=== PATIENT | female | born 1970 | race Native Hawaiian/Other Pacific Islander ===

== ENCOUNTER 2016-04-02 18:25 | Emergency (ER) | payer OTHER ==
[~2016-04-02] VITALS: Ht 167.6 cm; Wt 139.7 kg
[~2016-04-02 18:25] MED LIST: ALBU90AE13 INH; ALPR0.5T24 PO; AMOX500T5 PO; APAP PO; ASPIR-8181 MG PO; CETIRIZINE10 MG PO; CODEINE PO; HYDR10TA47 PO; HYDR10TA51 PO; HYDR25TA60 PO; METO50TA27 PO; METRONIDAZOL500 MG PO; NEURONTIN 100M100 MG OR; NEURONTIN 100M100 MG PO; NEXIUM40 M1 PO; OXYC5TAB53 PO; PANT40TA PO; SINGULAIR10 MG PO; XARELTO20 MG OR; ZANTAC300 MG PO
[2016-04-02 20:08] VITALS: BP 145/89; TEMP 98.3
== END 2016-04-02 20:08 | disposition home or self-care (01) ==
LOC: ED 18:25
DX: L29.8 Other pruritus (principal); T50.995A Adverse effect of other drugs, medicaments and biological substances, initial encounter; Y92.89 Other specified places as the place of occurrence of the external cause
CPT/HCPCS: 99282

== ENCOUNTER 2016-04-11 18:42 | Outpatient (CLI) | payer OTHER | END 2016-04-11 19:23 | disposition home or self-care (01) | LOC: US 18:42 | DX: M79.605 Pain in left leg (principal) ==

== ENCOUNTER 2016-04-25 10:47 | Outpatient (CLI) | payer OTHER | END 2016-04-25 22:05 | disposition home or self-care (01) | LOC: CT 10:47 | DX: K55.1 Chronic vascular disorders of intestine (principal) | CPT/HCPCS: 36415; 82565; 84520 ==

== ENCOUNTER 2016-05-01 18:52 | Observation (INO) | payer OTHER ==
[~2016-05-01] VITALS: Ht 167.6 cm; Wt 144.9 kg
[2016-05-01 20:33] LABS: PLATELET COUNT 405 K/uL (152-353)
[2016-05-01 20:43] LABS: POTASSIUM 5.5 mmol/L (3.6-5.2); SODIUM 132 mmol/L (136-145)
[2016-05-01 21:07] VITALS: BP 147/91; TEMP 98.2; Ht 167.6 cm; Wt 144.9 kg
[2016-05-02 00:02] VITALS: BP 113/47; TEMP 98.5
[2016-05-02 00:06] LABS: PARTIAL THROMBOPLASTIN TIME 24.2 SECONDS (24.5-33.6)
[2016-05-02 04:00] VITALS: BP 98/45; TEMP 98.6
[2016-05-02 08:11] VITALS: BP 117/53; TEMP 98.3
[2016-05-02 12:00] VITALS: BP 147/81; TEMP 98.3
[2016-05-02 16:00] VITALS: BP 122/67; TEMP 98
[2016-05-02 20:00] VITALS: BP 108/82; TEMP 97.8
[2016-05-03 00:15] VITALS: BP 150/72; TEMP 97.8
[2016-05-03 04:00] VITALS: BP 142/63; TEMP 97.8
[2016-05-03 05:18] LABS: PLATELET COUNT 398 K/uL (152-353)
[2016-05-03 05:39] LABS: POTASSIUM 3.9 mmol/L (3.6-5.2); SODIUM 137 mmol/L (136-145)
[2016-05-03 08:00] VITALS: BP 108/54; TEMP 97.8
[2016-05-03 12:00] VITALS: BP 124/63; TEMP 97.7
--- NOTE | 2016-05-03 18:10 | NUR ---
IV D/C'd. DISCHARGE INSTRUCTIONS SIGNED AND GIVEN. Pt. EXIT OUT OF FRONT ENTRANCE AMBULATING. NO DISTRESS OBSERVED.
== END 2016-05-03 10:05 | disposition home or self-care (01) ==
LOC: MED/SURG 18:52
PROVIDERS: ADMIT Family Medicine
DX: I50.21 Acute systolic (congestive) heart failure (principal); I48.0 Paroxysmal atrial fibrillation; I73.9 Peripheral vascular disease, unspecified; E13.65 Other specified diabetes mellitus with hyperglycemia; J44.9 Chronic obstructive pulmonary disease, unspecified; M06.832 Other specified rheumatoid arthritis, left wrist; E66.09 Other obesity due to excess calories; R60.0 Localized edema; R06.02 Shortness of breath; I74.5 Embolism and thrombosis of iliac artery; R07.89 Other chest pain
CPT/HCPCS: 36415; 36591; 80053; 82550; 82948; 83880; 84484; 85027; 85610; 85730; 93005; 94640; 94664; 94760; 96365; 96366; 96367; 96372; 99220; G0378; G0379; J0456; J1650

== ENCOUNTER 2016-09-08 23:16 | Emergency (ER) | payer OTHER ==
[~2016-09-08] VITALS: Ht 167.6 cm; Wt 145.2 kg
[2016-09-09 01:42] LABS: PLATELET COUNT 422 K/uL (152-353)
[2016-09-09 01:50] LABS: POTASSIUM 3.7 mmol/L (3.6-5.2); SODIUM 136 mmol/L (136-145)
[2016-09-09 02:34] VITALS: BP 118/67; TEMP 98.4
== END 2016-09-09 02:30 | disposition home or self-care (01) ==
LOC: ED 23:16
DX: L02.211 Cutaneous abscess of abdominal wall (principal); E11.9 Type 2 diabetes mellitus without complications
CPT/HCPCS: 36415; 80053; 83036; 85027; 96372; 99283; J0696

== ENCOUNTER 2016-11-19 17:35 | Inpatient (IN) | payer OTHER ==
[~2016-11-19] VITALS: Ht 167.6 cm; Wt 148.0 kg
[2016-11-19 19:05] LABS: PLATELET COUNT 451 K/uL (152-353)
[2016-11-19 19:14] VITALS: BP 120/62; TEMP 98.8; Ht 167.6 cm; Wt 148.0 kg
[2016-11-19 19:15] LABS: POTASSIUM 3.8 mmol/L (3.6-5.2); SODIUM 135 mmol/L (136-145)
[2016-11-19 20:09] VITALS: BP 107/53; TEMP 97.5
[2016-11-20] VITALS: BP 143/71; TEMP 98.3
[2016-11-20 04:00] VITALS: BP 115/64; TEMP 98
[2016-11-20 05:36] LABS: PLATELET COUNT 433 K/uL (152-353)
[2016-11-20 05:53] LABS: POTASSIUM 4.2 mmol/L (3.6-5.2); SODIUM 134 mmol/L (136-145)
[2016-11-20 08:00] VITALS: BP 150/65; TEMP 97.4
[2016-11-20 12:00] VITALS: BP 150/65; TEMP 97.6
[2016-11-20 16:00] VITALS: BP 113/66; TEMP 98
[2016-11-20 20:00] VITALS: BP 122/68; TEMP 97.9
[2016-11-21] VITALS: BP 107/61; TEMP 97.7
[2016-11-21 04:00] VITALS: BP 130/50; TEMP 97.8
[2016-11-21 05:21] LABS: PLATELET COUNT 366 K/uL (152-353)
[2016-11-21 05:48] LABS: POTASSIUM 4.4 mmol/L (3.6-5.2); SODIUM 134 mmol/L (136-145)
[2016-11-21 08:00] VITALS: BP 108/63; TEMP 97.7
[2016-11-21 12:00] VITALS: BP 108/62; TEMP 98.2
[2016-11-21 15:48] VITALS: BP 139/75; TEMP 97.9
[2016-11-21 20:00] VITALS: BP 147/77; TEMP 97.5
[2016-11-22] VITALS: BP 112/49; TEMP 97.7
[2016-11-22 04:00] VITALS: BP 129/70; TEMP 98
[2016-11-22 05:43] LABS: PLATELET COUNT 393 K/uL (152-353)
[2016-11-22 06:01] LABS: POTASSIUM 3.8 mmol/L (3.6-5.2); SODIUM 141 mmol/L (136-145)
[2016-11-22 08:00] VITALS: BP 129/71; TEMP 98.2
--- NOTE | 2016-11-22 11:41 | NUR ---
D/C ORDERS RECIEVED. IV D/C'D. D/C INSTURCTIONS GIVEN TO PT. PT HAS NO QUESTIONS. NAD NOTED. PT WALKED OUT TO CAR WITH PCT.
[2016-12-14] MEDS ORDERED: GLIP10TA55 PO (03:07)
== END 2016-11-22 11:48 | disposition home or self-care (01) | DRG 190 ==
LOC: MED/SURG 17:35
PROVIDERS: ADMIT Family Medicine
DX: J44.0 Chronic obstructive pulmonary disease with (acute) lower respiratory infection (principal); J18.8 Other pneumonia, unspecified organism; D72.828 Other elevated white blood cell count; E66.01 Morbid (severe) obesity due to excess calories; I10 Essential (primary) hypertension; E86.0 Dehydration; Z79.01 Long term (current) use of anticoagulants; Z72.0 Tobacco use; R74.8 Abnormal levels of other serum enzymes; E11.9 Type 2 diabetes mellitus without complications
CPT/HCPCS: 36415; 80053; 82948; 83735; 83880; 85027; 87040; 93005; 94640; 94664; 94760; 96365; 96366; 96367; 96372; 96374; 96375; J1200; J2920; J2930

== ENCOUNTER 2016-12-13 22:01 | Outpatient (CLI) | payer OTHER ==
[2016-12-14] MEDS ORDERED: GLIP10TA55 PO (03:07)
== END 2016-12-13 22:03 | disposition short-term general hospital (02) ==
LOC: AMB 22:01
DX: R07.89 Other chest pain (principal); R00.2 Palpitations
CPT/HCPCS: A0425; A0429

== ENCOUNTER 2016-12-31 13:43 | Outpatient (CLI) | payer OTHER ==
[~2016-12-31 13:43] MED LIST changes: +GLIP10TA55 PO
== END 2016-12-31 19:04 | disposition home or self-care (01) ==
LOC: MAMMO 13:43
DX: N61.0 Mastitis without abscess (principal)

== ENCOUNTER 2017-02-10 17:15 | Observation (INO) | payer OTHER ==
[~2017-02-10] VITALS: Ht 170.2 cm; Wt 138.8 kg
[2017-02-10 19:11] VITALS: BP 125/66; TEMP 98.8; Ht 170.2 cm; Wt 138.8 kg
[2017-02-10 20:00] VITALS: BP 114/60; TEMP 99
[2017-02-10 20:18] LABS: PLATELET COUNT 419 K/uL (152-353)
[2017-02-10 20:36] LABS: PARTIAL THROMBOPLASTIN TIME 20.9 SECONDS (24.5-33.6)
[2017-02-10 20:37] LABS: POTASSIUM 4.3 mmol/L (3.6-5.2); SODIUM 135 mmol/L (136-145)
[2017-02-11 00:30] VITALS: BP 120/49; TEMP 98.8
[2017-02-11 03:52] VITALS: BP 149/78; TEMP 98.9
[2017-02-11 05:30] LABS: PLATELET COUNT 366 K/uL (152-353)
[2017-02-11 06:19] LABS: POTASSIUM 3.8 mmol/L (3.6-5.2); SODIUM 135 mmol/L (136-145)
[2017-02-11 08:00] VITALS: BP 144/78; TEMP 98.4
[2017-02-11 11:39] VITALS: BP 103/52; TEMP 98.8
[2017-02-11] MEDS ORDERED: LEVAQUIN500 MG PO (16:44)
[2017-02-11] MEDS ORDERED: NITR0.4S SL (16:44)
--- NOTE | 2017-02-11 17:06 | NUR ---
IV D/C'd. DISCHARGE INSTRUCTIONS SIGNED AND GIVEN. Pt. EXIT OUT OF FRONT ENTRANCE AMBULATING.
== END 2017-02-11 17:06 | disposition home or self-care (01) ==
LOC: MED/SURG 17:15
PROVIDERS: ADMIT Family Medicine
DX: R07.9 Chest pain, unspecified (principal); I82.402 Acute embolism and thrombosis of unspecified deep veins of left lower extremity; I74.9 Embolism and thrombosis of unspecified artery
CPT/HCPCS: 36415; 36591; 80053; 81000; 82550; 83735; 84484; 85027; 85610; 85651; 85730; 93005; 96367; 96372; 96374; 99220; G0378; G0379; J1650; J2270; J2543

== ENCOUNTER 2017-02-25 18:06 | Observation (INO) | payer OTHER ==
[~2017-02-25] VITALS: Ht 167.6 cm; Wt 139.3 kg
[~2017-02-25 18:06] MED LIST changes: +LEVAQUIN500 MG PO; +NITR0.4S SL
[2017-02-25 18:48] LABS: PLATELET COUNT 519 K/uL (152-353)
[2017-02-25 19:15] LABS: POTASSIUM 3.7 mmol/L (3.6-5.2); SODIUM 138 mmol/L (136-145)
[2017-02-25 23:20] VITALS: BP 149/96; TEMP 98.8; Ht 167.6 cm; Wt 139.3 kg
[2017-02-26] VITALS: BP 114/52; TEMP 98
[2017-02-26 04:00] VITALS: BP 116/55; TEMP 97.5
[2017-02-26 06:00] LABS: POTASSIUM 4.4 mmol/L (3.6-5.2); SODIUM 137 mmol/L (136-145)
[2017-02-26 06:10] LABS: PLATELET COUNT 452 K/uL (152-353)
[2017-02-26 08:00] VITALS: BP 117/65; TEMP 98.8
[2017-02-26 12:00] VITALS: BP 113/66; TEMP 98.6
[2017-02-26 16:00] VITALS: BP 114/69; TEMP 98.8
--- NOTE | 2017-02-26 21:11 | NUR ---
PT NOT IN ROOM TO GIVE 2000 OR 2100 MEDS. STATES THAT PT IS OUTSIDE SMOKING.
== END 2017-02-26 22:22 | disposition home or self-care (01) ==
LOC: MED/SURG 18:06
PROVIDERS: ADMIT Family Medicine
DX: J18.8 Other pneumonia, unspecified organism (principal); R05 Cough
CPT/HCPCS: 36415; 36591; 36600; 80053; 82805; 82948; 83735; 85027; 87040; 93005; 94640; 94664; 94760; 96365; 96366; 96367; 96374; 96375; 99220; G0378; G0379; J2930

== ENCOUNTER 2017-05-19 19:01 | Outpatient (CLI) | payer OTHER ==
[2017-05-19 19:35] LABS: PLATELET COUNT 407 K/uL (152-353)
== END 2017-05-19 20:13 | disposition home or self-care (01) ==
LOC: LAB 19:01
PROVIDERS: Surgery
DX: I74.5 Embolism and thrombosis of iliac artery (principal); Z01.812 Encounter for preprocedural laboratory examination
CPT/HCPCS: 36415; 80048; 85027

== ENCOUNTER 2017-06-14 17:38 | Emergency (ER) | payer OTHER ==
[~2017-06-14] VITALS: Ht 167.6 cm; Wt 122.5 kg
[2017-06-14] MEDS ORDERED: ASA LOW STR81 MG PO (18:12)
[2017-06-14] MEDS ORDERED: NEXIUM 24HR20 M1 PO (18:13)
[2017-06-14] MEDS ORDERED: HYDR5TAB9 PO (18:13)
[2017-06-14] MEDS ORDERED: CYCL10TA35 PO (18:14)
[2017-06-14] MEDS ORDERED: CLOP75TA2 PO (18:14)
[2017-06-14] MEDS ORDERED: METFORMIN HYDR500 MG PO (18:15)
[2017-06-14] MEDS ORDERED: ALBU90AE13 INH (18:16)
[2017-06-14 18:38] LABS: PLATELET COUNT 392 K/uL (152-353)
[2017-06-14 18:42] LABS: POTASSIUM 4.1 mmol/L (3.6-5.2)
[2017-06-14 18:53] LABS: PARTIAL THROMBOPLASTIN TIME 23.9 SECONDS (24.5-33.6)
[2017-06-14 20:49] VITALS: BP 138/72; TEMP 97.3
== END 2017-06-14 20:49 | disposition home or self-care (01) ==
LOC: ED 17:38
DX: I80.9 Phlebitis and thrombophlebitis of unspecified site (principal)
CPT/HCPCS: 36415; 80053; 85027; 85379; 85610; 85730; 96372; 99283; J1885

== ENCOUNTER 2017-09-23 16:00 | Outpatient (CLI) | payer OTHER ==
[~2017-09-23 16:00] MED LIST changes: +ASA LOW STR81 MG PO; +CLOP75TA2 PO; +CYCL10TA35 PO; +HYDR5TAB9 PO; +METFORMIN HYDR500 MG PO; +NEXIUM 24HR20 M1 PO
== END 2017-09-23 23:19 | disposition home or self-care (01) ==
LOC: US 16:00
DX: M79.605 Pain in left leg (principal)

== ENCOUNTER 2017-10-23 15:56 | Outpatient (CLI) | payer OTHER | END 2017-10-23 19:23 | disposition home or self-care (01) | LOC: RESP 15:56 | DX: G62.89 Other specified polyneuropathies (principal) | CPT/HCPCS: 95910 ==

== ENCOUNTER 2018-04-14 15:21 | Outpatient (CLI) | payer OTHER | END 2018-04-14 21:17 | disposition home or self-care (01) | LOC: US 15:21 | DX: N95.8 Other specified menopausal and perimenopausal disorders (principal) ==

== ENCOUNTER 2018-06-03 18:51 | Outpatient (CLI) | payer OTHER | END 2018-06-03 19:15 | disposition home or self-care (01) | LOC: LAB 18:51 | DX: R06.02 Shortness of breath (principal) | CPT/HCPCS: 83880 ==

== ENCOUNTER 2018-08-10 16:58 | Outpatient (CLI) | payer OTHER | END 2018-08-10 19:23 | disposition home or self-care (01) | LOC: RAD 16:58 | DX: S93.492A Sprain of other ligament of left ankle, initial encounter (principal) ==

== ENCOUNTER 2018-08-15 21:37 | Emergency (ER) | payer OTHER ==
[~2018-08-15] VITALS: Ht 33 cm; Wt 0.5 kg
[2018-08-15 22:08] LABS: PLATELET COUNT 614 K/uL (152-353)
[2018-08-15 22:20] LABS: SODIUM 137 mmol/L (136-145)
[2018-08-16 03:08] VITALS: BP 149/70; TEMP 97.5
== END 2018-08-16 03:08 | disposition short-term general hospital (02) ==
LOC: ED 21:37
PROVIDERS: Emergency Medicine
PROC: 0T9B70Z Drainage of Bladder with Drainage Device, Via Natural or Artificial Opening (ICD-10-PCS; principal; 2018-08-15)
PROC: 0D9670Z Drainage of Stomach with Drainage Device, Via Natural or Artificial Opening (ICD-10-PCS; 2018-08-15)
DX: R41.82 Altered mental status, unspecified (principal); R11.10 Vomiting, unspecified; R00.0 Tachycardia, unspecified
CPT/HCPCS: 36415; 36600; 43754; 51702; 80053; 80307; 82550; 82553; 82805; 83605; 84484; 85027; 85379; 87040; 93005; 96365; 96375; 99285; J0696; J2310; J2405; J2550; Q9963

== ENCOUNTER 2018-08-16 03:09 | Outpatient (CLI) | payer OTHER | END 2018-08-16 04:32 | disposition short-term general hospital (02) | LOC: AMB 03:09 | DX: R41.82 Altered mental status, unspecified (principal) | CPT/HCPCS: A0425; A0427 ==

== ENCOUNTER 2018-11-18 14:50 | Inpatient (IN) | payer OTHER ==
[~2018-11-18] VITALS: Ht 162.6 cm; Wt 122.0 kg
[2018-11-18 16:00] VITALS: BP 98/72; TEMP 98.1
[2018-11-18 17:08] VITALS: BP 98/72; TEMP 98.1; Ht 162.6 cm; Wt 122.0 kg
[2018-11-18] MEDS ORDERED: GABA400C2 PO (17:27)
[2018-11-18] MEDS ORDERED: METO-837 PO (17:29)
[2018-11-18] MEDS ORDERED: NUCYNTA ER100 MG PO (17:33)
[2018-11-18] MEDS ORDERED: TRAMADOL HYDROC50 MG PO (17:34)
[2018-11-18] MEDS ORDERED: VERA80TAB PO (17:35)
[2018-11-18] MEDS ORDERED: ALBUTEROL0.083 % INH (17:38)
[2018-11-18 20:00] VITALS: BP 110/83; TEMP 98.1
[2018-11-19] VITALS: BP 132/80; TEMP 98.6
[2018-11-19 04:00] VITALS: BP 122/82; TEMP 98
[2018-11-19 08:00] VITALS: BP 122/60; TEMP 97.8
[2018-11-19 12:00] VITALS: BP 142/82; TEMP 97.3
[2018-11-19 13:11] LABS: PLATELET COUNT 340 K/uL (152-353)
[2018-11-19 13:18] LABS: POTASSIUM 4.1 mmol/L (3.6-5.2)
[2018-11-19 13:19] LABS: POTASSIUM 3.5 mmol/L (3.6-5.2)
[2018-11-19 16:00] VITALS: BP 147/85; TEMP 98.2
[2018-11-19 20:00] VITALS: BP 123/69; TEMP 98.9
[2018-11-20] VITALS: BP 103/62; TEMP 99.2
[2018-11-20 04:00] VITALS: BP 101/76; TEMP 98.9
[2018-11-20 05:23] LABS: PLATELET COUNT 316 K/uL (152-353)
[2018-11-20 05:45] LABS: POTASSIUM 4.3 mmol/L (3.6-5.2)
[2018-11-20 08:00] VITALS: BP 144/66; TEMP 97.8
[2018-11-20 12:00] VITALS: BP 122/67; TEMP 97.5
[2018-11-20 16:00] VITALS: BP 115/65; TEMP 98
[2018-11-20 20:00] VITALS: BP 148/68; TEMP 98.4
[2018-11-21] VITALS: BP 144/74; TEMP 98.4
[2018-11-21] MEDS ORDERED: NUCYNTA100 MG PO (00:42)
[2018-11-21 04:00] VITALS: BP 107/68; TEMP 98.2
[2018-11-21 05:21] LABS: PLATELET COUNT 295 K/uL (152-353)
[2018-11-21 05:40] LABS: POTASSIUM 4.3 mmol/L (3.6-5.2)
[2018-11-21 08:00] VITALS: BP 110/67; TEMP 98.4
[2018-11-21 12:00] VITALS: BP 102/60; TEMP 97.9
[2018-11-21 16:00] VITALS: BP 103/63; TEMP 98.5
== END 2018-11-21 21:28 | disposition home or self-care (01) | DRG 194 ==
LOC: MED/SURG 14:50
PROVIDERS: ADMIT Family Medicine
DX: J18.8 Other pneumonia, unspecified organism (principal); J44.0 Chronic obstructive pulmonary disease with (acute) lower respiratory infection; M79.7 Fibromyalgia; I11.0 Hypertensive heart disease with heart failure; I50.9 Heart failure, unspecified; I48.91 Unspecified atrial fibrillation; I25.10 Atherosclerotic heart disease of native coronary artery without angina pectoris; E11.9 Type 2 diabetes mellitus without complications; Z86.711 Personal history of pulmonary embolism; E03.8 Other specified hypothyroidism
CPT/HCPCS: 36415; 80053; 82550; 83605; 83735; 83880; 84100; 84484; 85027; 87040; 87070; 87077; 87185; 87186; 87205; 93005; 94640; 94664; 94668; 94760; J0696

== ENCOUNTER 2018-11-18 15:13 | Outpatient (CLI) | payer OTHER ==
[2018-11-18] MEDS ORDERED: GABA400C2 PO (17:27)
[2018-11-18] MEDS ORDERED: METO-837 PO (17:29)
[2018-11-18] MEDS ORDERED: NUCYNTA ER100 MG PO (17:33)
[2018-11-18] MEDS ORDERED: TRAMADOL HYDROC50 MG PO (17:34)
[2018-11-18] MEDS ORDERED: VERA80TAB PO (17:35)
[2018-11-18] MEDS ORDERED: ALBUTEROL0.083 % INH (17:38)
== END 2018-11-18 15:16 | disposition short-term general hospital (02) ==
LOC: AMB 15:13
DX: I63.89 Other cerebral infarction (principal); J18.8 Other pneumonia, unspecified organism
CPT/HCPCS: A0425; A0429

== ENCOUNTER 2018-12-24 16:08 | Observation (INO) | payer OTHER ==
[~2018-12-24] VITALS: Ht 170.2 cm; Wt 116.6 kg
[~2018-12-24 16:08] MED LIST changes: +ALBUTEROL0.083 % INH; +GABA400C2 PO; +METO-837 PO; +NUCYNTA ER100 MG PO; +NUCYNTA100 MG PO; +TRAMADOL HYDROC50 MG PO; +VERA80TAB PO
[2018-12-24 18:05] VITALS: BP 134/73; TEMP 98; Ht 170.2 cm; Wt 116.6 kg
[2018-12-24] MEDS ORDERED: NUCYNTA ER100 MG PO (18:20)
[2018-12-24] MEDS ORDERED: METFORMIN HCL500 MG PO (18:22)
[2018-12-24] MEDS ORDERED: [UNRECOGNIZED DRUG - REMARK] PO (18:23)
[2018-12-24] MEDS ORDERED: RANI150T78 PO (18:26)
[2018-12-24] MEDS ORDERED: ESOMEPRAZOLE MA40 MG PO (18:27)
[2018-12-24] MEDS ORDERED: VERA80TAB PO (18:28)
[2018-12-24] MEDS ORDERED: CLOP75TA2 PO (18:30)
[2018-12-24] MEDS ORDERED: ONDANSETRON HYDR4 MG PO (18:32)
[2018-12-24 18:33] LABS: PLATELET COUNT 333 K/uL (152-353)
[2018-12-24] MEDS ORDERED: GLIP10TA55 PO (18:33)
[2018-12-24] MEDS ORDERED: CYCLOBENZAPRINE10 MG PO (18:34)
[2018-12-24] MEDS ORDERED: ASPIRIN 8181 MG PO (18:36)
[2018-12-24] MEDS ORDERED: METO-837 PO (18:38)
[2018-12-24 18:46] LABS: POTASSIUM 5.3 mmol/L (3.6-5.2); SODIUM 135 mmol/L (136-145)
[2018-12-24 20:00] VITALS: BP 168/94; TEMP 97.8
[2018-12-25 00:01] VITALS: BP 104/69; TEMP 98.2
[2018-12-25 04:01] VITALS: BP 110/63; TEMP 98
[2018-12-25 08:00] VITALS: BP 128/82; TEMP 98.4
[2018-12-25 12:00] VITALS: BP 125/79; TEMP 97.9
[2018-12-25 16:00] VITALS: BP 148/75; TEMP 97.6
[2018-12-25 20:00] VITALS: BP 126/79; TEMP 97.7
[2018-12-26] VITALS (7 sets, daily range): BP systolic 89–140; BP diastolic 50–89; TEMP 97.3–98.8
[2018-12-26 05:22] LABS: PLATELET COUNT 302 K/uL (152-353)
[2018-12-26 05:43] LABS: POTASSIUM 3.7 mmol/L (3.6-5.2)
[2018-12-27 03:56] VITALS: BP 101/55; TEMP 98.5
[2018-12-27 05:14] LABS: PLATELET COUNT 251 K/uL (152-353)
[2018-12-27 05:39] LABS: POTASSIUM 3.9 mmol/L (3.6-5.2)
[2018-12-27 08:00] VITALS: BP 94/54; TEMP 97.6
[2018-12-27 12:00] VITALS: TEMP 97.6
[2018-12-27 16:00] VITALS: BP 99/66; TEMP 97.6
[2018-12-27 19:59] VITALS: BP 134/96; TEMP 98.7
[2018-12-28] VITALS: BP 122/66; TEMP 98.4
[2018-12-28 03:58] VITALS: BP 119/75; TEMP 98.1
[2018-12-28 08:08] VITALS: BP 126/64; TEMP 97.9
[2018-12-28 12:08] VITALS: BP 119/72; TEMP 98.2
[2018-12-28 16:13] VITALS: BP 112/64; TEMP 98.1
== END 2018-12-28 20:33 | disposition home or self-care (01) ==
LOC: MED/SURG 16:08
PROVIDERS: ADMIT Family Medicine
DX: J69.0 Pneumonitis due to inhalation of food and vomit (principal); J44.0 Chronic obstructive pulmonary disease with (acute) lower respiratory infection; J44.1 Chronic obstructive pulmonary disease with (acute) exacerbation; I11.0 Hypertensive heart disease with heart failure; I50.9 Heart failure, unspecified; I48.91 Unspecified atrial fibrillation; I25.10 Atherosclerotic heart disease of native coronary artery without angina pectoris; M79.7 Fibromyalgia; E03.8 Other specified hypothyroidism; E11.9 Type 2 diabetes mellitus without complications; Z86.711 Personal history of pulmonary embolism
CPT/HCPCS: 36415; 80053; 82948; 83605; 83735; 83880; 84100; 84132; 84484; 85027; 86140; 87040; 87899; 93005; 94640; 94664; 94668; 94760; 96367; 96374; 99220; G0378; G0379; J1956

== ENCOUNTER 2018-12-24 17:00 | Outpatient (CLI) | payer OTHER ==
[2018-12-24] MEDS ORDERED: NUCYNTA ER100 MG PO (18:20)
[2018-12-24] MEDS ORDERED: METFORMIN HCL500 MG PO (18:22)
[2018-12-24] MEDS ORDERED: [UNRECOGNIZED DRUG - REMARK] PO (18:23)
[2018-12-24] MEDS ORDERED: RANI150T78 PO (18:26)
[2018-12-24] MEDS ORDERED: ESOMEPRAZOLE MA40 MG PO (18:27)
[2018-12-24] MEDS ORDERED: VERA80TAB PO (18:28)
[2018-12-24] MEDS ORDERED: CLOP75TA2 PO (18:30)
[2018-12-24] MEDS ORDERED: ONDANSETRON HYDR4 MG PO (18:32)
[2018-12-24] MEDS ORDERED: GLIP10TA55 PO (18:33)
[2018-12-24] MEDS ORDERED: CYCLOBENZAPRINE10 MG PO (18:34)
[2018-12-24] MEDS ORDERED: ASPIRIN 8181 MG PO (18:36)
[2018-12-24] MEDS ORDERED: METO-837 PO (18:38)
== END 2018-12-24 17:03 | disposition short-term general hospital (02) ==
LOC: AMB 17:00
DX: J18.9 Pneumonia, unspecified organism (principal)
CPT/HCPCS: A0425; A0426

== ENCOUNTER 2019-01-18 20:55 | Outpatient (CLI) | payer OTHER ==
[~2019-01-18 20:55] MED LIST changes: +ASPIRIN 8181 MG PO; +CYCLOBENZAPRINE10 MG PO; +ESOMEPRAZOLE MA40 MG PO; +METFORMIN HCL500 MG PO; +ONDANSETRON HYDR4 MG PO; +RANI150T78 PO; +[UNRECOGNIZED DRUG - REMARK] PO
== END 2019-01-18 20:57 | disposition short-term general hospital (02) ==
LOC: AMB 20:55
DX: R41.82 Altered mental status, unspecified (principal)
CPT/HCPCS: A0425; A0427

== ENCOUNTER 2019-01-18 21:02 | Emergency (ER) | payer OTHER ==
[~2019-01-18] VITALS: Ht 170.2 cm; Wt 116.6 kg
[2019-01-18 21:54] LABS: PLATELET COUNT 346 K/uL (152-353)
[2019-01-18 22:02] LABS: POTASSIUM 3.4 mmol/L (3.6-5.2); SODIUM 138 mmol/L (136-145)
[2019-01-18 22:45] LABS: PARTIAL THROMBOPLASTIN TIME 21.9 SECONDS (24.5-33.6)
[2019-01-18 22:55] VITALS: BP 143/79; TEMP 97.3
== END 2019-01-18 22:55 | disposition short-term general hospital (02) ==
LOC: ED 21:02
PROVIDERS: Emergency Medicine
PROC: 0T9B70Z Drainage of Bladder with Drainage Device, Via Natural or Artificial Opening (ICD-10-PCS; principal; 2019-01-18)
DX: G45.8 Other transient cerebral ischemic attacks and related syndromes (principal)
CPT/HCPCS: 36415; 51702; 80053; 83735; 84484; 85027; 85610; 85730; 93005; 96360; 96375; 99285; J2405; J2765

== ENCOUNTER 2019-02-15 00:38 | Outpatient (CLI) | payer OTHER ==
[2019-02-15] MEDS ORDERED: LIPITOR40 MG PO (00:52)
[2019-02-15] MEDS ORDERED: HYDR10TA PO (00:53)
[2019-02-15] MEDS ORDERED: XARELTO20 MG PO (00:54)
== END 2019-02-15 00:41 | disposition short-term general hospital (02) ==
LOC: AMB 00:38
DX: R41.82 Altered mental status, unspecified (principal); R53.1 Weakness
CPT/HCPCS: A0425; A0427

== ENCOUNTER 2019-02-15 00:45 | Emergency (ER) | payer OTHER ==
[~2019-02-15] VITALS: Ht 170.2 cm; Wt 116.6 kg
[2019-02-15] MEDS ORDERED: LIPITOR40 MG PO (00:52)
[2019-02-15] MEDS ORDERED: HYDR10TA PO (00:53)
[2019-02-15] MEDS ORDERED: XARELTO20 MG PO (00:54)
[2019-02-15 01:06] LABS: PLATELET COUNT 292 K/uL (152-353)
[2019-02-15 01:33] LABS: PARTIAL THROMBOPLASTIN TIME 28.5 SECONDS (24.5-33.6)
[2019-02-15 01:41] LABS: POTASSIUM 3.1 mmol/L (3.6-5.2); SODIUM 141 mmol/L (136-145)
[2019-02-15 04:06] VITALS: BP 120/98; TEMP 98.3
== END 2019-02-15 04:06 | disposition home or self-care (01) ==
LOC: ED 00:45
PROVIDERS: Hospitalist
DX: J44.1 Chronic obstructive pulmonary disease with (acute) exacerbation (principal); I69.951 Hemiplegia and hemiparesis following unspecified cerebrovascular disease affecting right dominant side; E87.6 Hypokalemia; F17.210 Nicotine dependence, cigarettes, uncomplicated; R00.0 Tachycardia, unspecified
CPT/HCPCS: 80053; 80320; 82550; 82805; 83880; 84484; 85027; 85610; 85730; 93005; 94664; 96374; 96375; 99284; J2405; J2930

== ENCOUNTER 2019-02-20 19:45 | Outpatient (CLI) | payer OTHER ==
[~2019-02-20 19:45] MED LIST changes: +HYDR10TA PO; +LIPITOR40 MG PO; +XARELTO20 MG PO
== END 2019-02-20 19:49 | disposition short-term general hospital (02) ==
LOC: AMB 19:45
DX: R56.9 Unspecified convulsions (principal)
CPT/HCPCS: A0425; A0429

== ENCOUNTER 2019-02-20 19:50 | Emergency (ER) | payer OTHER ==
[~2019-02-20] VITALS: Ht 170.2 cm; Wt 116.6 kg
[2019-02-20 20:32] LABS: PLATELET COUNT 375 K/uL (152-353)
[2019-02-20 20:51] LABS: POTASSIUM 4.3 mmol/L (3.6-5.2); SODIUM 137 mmol/L (136-145)
[2019-02-20 20:59] LABS: PARTIAL THROMBOPLASTIN TIME 28.3 SECONDS (24.5-33.6)
[2019-02-21 00:30] VITALS: BP 123/74; TEMP 98.6
== END 2019-02-21 00:45 | disposition short-term general hospital (02) ==
LOC: ED 19:50
PROVIDERS: Emergency Medicine Emergency Medical Services
DX: R56.9 Unspecified convulsions (principal); I69.951 Hemiplegia and hemiparesis following unspecified cerebrovascular disease affecting right dominant side; R00.0 Tachycardia, unspecified
CPT/HCPCS: 36415; 80053; 80307; 80320; 80329; 82550; 83605; 83880; 84484; 85027; 85379; 85610; 85730; 93005; 94664; 99285

== ENCOUNTER 2021-08-30 10:19 | Emergency (ER) | payer OTHER ==
[~2021-08-30] VITALS: Ht 170.2 cm; Wt 116.6 kg
[2021-08-30 10:19] VITALS: TEMP 98.7
[2021-08-30 10:41] LABS: PLATELET COUNT 293 K/uL (152-353)
[2021-08-30 11:00] VITALS: BP 154/93
[2021-08-30 11:00] LABS: POTASSIUM 4.1 mmol/L (3.6-5.2)
== END 2021-08-30 16:25 | disposition home or self-care (01) ==
LOC: ED 10:19
PROVIDERS: Emergency Medicine
DX: R56.9 Unspecified convulsions (principal)
CPT/HCPCS: 80053; 84484; 85027; 93005; 99283; J2405

== ENCOUNTER 2021-09-06 12:10 | Emergency (ER) | payer OTHER ==
[~2021-09-06] VITALS: Ht 170.2 cm; Wt 116.6 kg
[2021-09-06 12:10] VITALS: TEMP 97.6
[2021-09-06 12:58] LABS: PLATELET COUNT 244 K/uL (152-353)
[2021-09-06 13:09] LABS: POTASSIUM 4.3 mmol/L (3.6-5.2)
[2021-09-06 19:00] VITALS: BP 108/78
== END 2021-09-06 20:30 | disposition short-term general hospital (02) ==
LOC: ED 12:10
PROVIDERS: Emergency Medicine
DX: J44.1 Chronic obstructive pulmonary disease with (acute) exacerbation (principal); F17.210 Nicotine dependence, cigarettes, uncomplicated
CPT/HCPCS: 36600; 80053; 82805; 83880; 84484; 85027; 85379; 85610; 93005; 94664; 96365; 96372; 96374; 99284; J1885; J1956; J2405; J2930

== ENCOUNTER 2022-04-23 15:46 | Emergency (ER) | payer OTHER ==
[~2022-04-23] VITALS: Ht 170.2 cm; Wt 116.6 kg
[2022-04-23 15:46] VITALS: BP 135/71; TEMP 99.1
[2022-04-23 16:40] LABS: PLATELET COUNT 261 K/uL (152-353)
[2022-04-23 16:51] LABS: PARTIAL THROMBOPLASTIN TIME 33.5 SECONDS (24.5-33.6)
[2022-04-23 17:02] LABS: POTASSIUM 3.7 mmol/L (3.6-5.2); SODIUM 140 mmol/L (136-145)
== END 2022-04-24 14:14 | disposition home or self-care (01) ==
LOC: ED 15:46
PROVIDERS: Emergency Medicine
DX: J40 Bronchitis, not specified as acute or chronic (principal); F17.210 Nicotine dependence, cigarettes, uncomplicated
CPT/HCPCS: 36600; 80053; 82805; 83880; 84484; 85027; 85379; 85610; 85730; 93005; 99283; Q9963

== ENCOUNTER 2022-07-17 10:36 | Observation (INO) | payer OTHER ==
[~2022-07-17] VITALS: Ht 167.6 cm; Wt 90.3 kg
[2022-07-17 10:36] VITALS: BP 166/80; TEMP 98.2
[2022-07-17 11:21] LABS: PLATELET COUNT 326 K/uL (152-353)
[2022-07-17 11:41] LABS: POTASSIUM 4.2 mmol/L (3.6-5.2); SODIUM 136 mmol/L (136-145)
[2022-07-17 16:52] VITALS: BP 122/70; TEMP 98; Ht 167.6 cm; Wt 90.3 kg
[2022-07-17 20:00] VITALS: BP 110/68; TEMP 98
[2022-07-18] VITALS: BP 103/66; TEMP 98.2
[2022-07-18 04:00] VITALS: BP 96/66; TEMP 98.2
[2022-07-18 08:00] VITALS: BP 107/75; TEMP 97.8
[2022-07-18] MEDS ORDERED: VERA80TAB PO (09:49)
[2022-07-18] MEDS ORDERED: GABAPENTIN PO (09:50)
[2022-07-18] MEDS ORDERED: ZOLOFT25 MG PO (09:50)
[2022-07-18] MEDS ORDERED: METO25TA4 PO (09:51)
[2022-07-18] MEDS ORDERED: PANTOPRAZOLE 40MG TA PO (09:52)
[2022-07-18] MEDS ORDERED: METF500T PO (09:53)
[2022-07-18] MEDS ORDERED: ALBU90AE13 INH (09:54)
[2022-07-18] MEDS ORDERED: XYZAL ALLERGY 245 MG PO (09:54)
[2022-07-18 12:00] VITALS: BP 120/66; TEMP 98.2
[2022-07-18 16:00] VITALS: BP 121/74; TEMP 98.2
[2022-07-18 20:00] VITALS: BP 90/55; TEMP 98.4
[2022-07-19 04:00] VITALS: BP 98/60; TEMP 98.3
[2022-07-19 04:24] LABS: PLATELET COUNT 212 K/uL (152-353)
[2022-07-19 05:29] LABS: POTASSIUM 3.4 mmol/L (3.6-5.2)
[2022-07-19 08:05] VITALS: BP 101/77; TEMP 97.9
[2022-07-19] MEDS ORDERED: CIPR500T PO (09:37)
[2022-07-19] MEDS ORDERED: NYST100016 EX (09:39)
[2022-07-19 12:00] VITALS: BP 121/79; TEMP 97.6
== END 2022-07-19 18:47 | disposition home or self-care (01) ==
LOC: ED 10:36 → MED/SURG 15:30
PROVIDERS: ADMIT Emergency Medicine Emergency Medical Services; ATTEND Internal Medicine
DX: A04.5 Campylobacter enteritis (principal); I69.851 Hemiplegia and hemiparesis following other cerebrovascular disease affecting right dominant side; Z72.0 Tobacco use; E66.01 Morbid (severe) obesity due to excess calories; Z68.32 Body mass index [BMI] 32.0-32.9, adult; E83.42 Hypomagnesemia; R19.7 Diarrhea, unspecified; R10.9 Unspecified abdominal pain; R11.2 Nausea with vomiting, unspecified; E86.0 Dehydration; L89.159 Pressure ulcer of sacral region, unspecified stage
CPT/HCPCS: 36415; 80053; 81000; 81025; 82150; 83690; 83735; 84484; 85027; 87015; 87040; 87045; 87324; 87449; 87899; 93005; 94760; 96361; 96367; 96374; 96375; 99221; 99284; G0378; J2405; J3475; J3490; Q9963

== ENCOUNTER 2022-07-27 18:11 | Emergency (ER) | payer OTHER ==
[~2022-07-27] VITALS: Ht 167.6 cm; Wt 88.9 kg
[2022-07-27 18:11] VITALS: TEMP 97.2
[~2022-07-27 18:11] MED LIST changes: +CIPR500T PO; +GABAPENTIN PO; +METF500T PO; +METO25TA4 PO; +NYST100016 EX; +PANTOPRAZOLE 40MG TA PO; +XYZAL ALLERGY 245 MG PO; +ZOLOFT25 MG PO
[2022-07-27 19:15] LABS: PLATELET COUNT 367 K/uL (152-353)
[2022-07-27 21:07] LABS: SODIUM 135 mmol/L (136-145)
[2022-07-27 21:10] LABS: POTASSIUM 6.1 mmol/L (3.6-5.2)
[2022-07-27 22:40] VITALS: BP 112/56
== END 2022-07-27 22:40 | disposition short-term general hospital (02) ==
LOC: ED 18:11
PROVIDERS: Family Medicine
DX: N17.9 Acute kidney failure, unspecified (principal); E87.5 Hyperkalemia; F17.210 Nicotine dependence, cigarettes, uncomplicated; R11.10 Vomiting, unspecified; R06.2 Wheezing
CPT/HCPCS: 80053; 81000; 81025; 82150; 82272; 82550; 83690; 84484; 85027; 87086; 87088; 93005; 94664; 96361; 96365; 96375; 99284; J0696; J1815; J2270; J2405; J7060